=== PATIENT | male | born 1965 | race Caucasian/White ===

== ENCOUNTER → 2019-03-02 | Outpatient (CLI) | payer OTHER ==
[~2019-03-02] MED LIST: ALEVE; Norco 5-325 Ta1 EACH PO; OXYACE5T PO; PROM25 PO
== END | disposition home or self-care (01) ==
LOC: LAB SHORT 12:08 → LAB EV 12:08
DX: J03.90 Acute tonsillitis, unspecified (principal)
CPT/HCPCS: 87081